=== PATIENT | female | born 1975 | race African-American/Black ===

== ENCOUNTER 2020-08-28 18:15 | Emergency (ER) | payer OTHER ==
[2020-08-28 18:47] VITALS: TEMP 98.5; BMI 54.9
[2020-08-28] MEDS ORDERED: ACETAMINOPHEN 1000 MG/100 ML VIAL (NON FORMULARY) IVPB ONE (18:57)
[2020-08-28] MEDS ORDERED: ACETAMINOPHEN INJECTION 100 ML IVPB ONE (19:10)
[2020-08-28 19:30] LABS: PH,URINE 6.5 (5.0-8.0); URINE APPEARANCE CLEAR; URINE BILIRUBIN NEGATIVE (NEGATIVE); URINE COLOR YELLOW; URINE GLUCOSE (UA) NEGATIVE (NEGATIVE); URINE KETONE NEGATIVE (NEGATIVE); URINE LEUK ESTERASE NEGATIVE (NEGATIVE); URINE NITRITE NEGATIVE (NEGATIVE); URINE PROTEIN NEGATIVE (NEGATIVE); URINE UROBILINOGEN 0.2 mg/dL (0.2-1.0)
[2020-08-28 19:41] LABS: BASO % 0.2 % (0-2.0); EOS % 0.3 % (0-4.5); HEMATOCRIT 39.7 % (32.4-45.2); HEMOGLOBIN 12.9 GM/dL (10.7-15.3); LYMPH % 16.6 % (8-40); MCH 27.2 pg (25.7-33.7); MCHC 32.6 g/dl (32.0-36.0); MEAN CELL VOLUME 83.6 fl (80-96); MONO % 5.9 % (3.8-10.2); PLATELET COUNT 440 K/MM3 (134-434); RBC 4.75 M/mm3 (3.60-5.2); RDW 15.4 % (11.6-15.6)
[2020-08-28 20:00] LABS: CHLORIDE 101 mmol/L (98-107); SODIUM 134 mmol/L (136-145)
[2020-08-28 20:02] LABS: CALCIUM 9.4 mg/dL (8.5-10.1)
[2020-08-28 20:03] LABS: ALBUMIN 3.5 g/dl (3.4-5.0); ANION GAP 7 MMOL/L (8-16); BLOOD UREA NITROGEN 20.8 mg/dL (7-18); CO2 27 mmol/L (21-32); GLUCOSE,RANDOM 121 mg/dL (74-106); LIPASE 53 U/L (73-393); MAGNESIUM 2.2 mg/dL (1.8-2.4)
[2020-08-28 20:06] LABS: CREATININE 0.8 mg/dL (0.55-1.3); SGOT/AST 13 U/L (15-37); SGPT/ALT 22 U/L (13-61)
[2020-08-28 20:07] LABS: BILIRUBIN,TOTAL 0.4 mg/dL (0.2-1); TOT PROT 7.8 g/dl (6.4-8.2)
[2020-08-28 20:08] LABS: ALK PHOS 98 U/L (45-117)
[2020-08-28 22:21] VITALS: BP 112/62; PULSE 87
== END 2020-08-29 00:02 | disposition home or self-care (01) ==
LOC: JER 18:15
PROC: 3E0333Z Introduction of Anti-inflammatory into Peripheral Vein, Percutaneous Approach (ICD-10-PCS; principal; 2020-08-28)
DX: R10.9 Unspecified abdominal pain (principal)
CPT/HCPCS: 36415; 74177-TC; 80053; 81003; 82550; 82553; 83605; 83690; 83735; 84484; 84703; 85025; 87086; 93005; 93010; 99285-25; J0131; Q9967

== ENCOUNTER 2022-02-05 10:09 | Emergency (ER) | payer OTHER ==
[2022-02-05 10:31] VITALS: BP 138/82; PULSE 80; RESP 18; TEMP 98.4; BMI 60.0
[2022-02-05 12:59] LABS: THROAT:GRP A STREP NOT DETECTED (NOTDETECTED)
== END 2022-02-05 12:01 | disposition home or self-care (01) ==
LOC: JER 10:09
DX: R05.9 Cough, unspecified (principal); R07.0 Pain in throat; B34.9 Viral infection, unspecified
CPT/HCPCS: 0241U-QW; 87651; 99283-25

== ENCOUNTER 2022-08-09 11:03 | Emergency (ER) | payer OTHER ==
[2022-08-09 11:15] VITALS: BP 122/75; PULSE 86; RESP 18; TEMP 97.7; BMI 58.3
== END 2022-08-09 15:18 | disposition home or self-care (01) ==
LOC: JER 11:03 → JERFT 11:03
DX: M25.562 Pain in left knee (principal); R22.42 Localized swelling, mass and lump, left lower limb; R06.02 Shortness of breath; M25.462 Effusion, left knee
CPT/HCPCS: 71046-TC-FY; 73562-TC-LT-FY; 93971-TC; 99284-25

== ENCOUNTER 2022-08-19 14:32 | Emergency (ER) | payer OTHER ==
[2022-08-19 14:47] VITALS: BP 143/78; PULSE 88; RESP 18; TEMP 98; BMI 58.3
[2022-08-19] MEDS ORDERED: DIPHTH,PERTUSS(ACELL),TET 0.5 ML DISP.SYRIN IM ONE ×2 (16:09→16:12)
[2022-08-19] MEDS ORDERED: BACITRACIN ZINC 15 GM TUBE TOPICAL OINTMENT TP ONE (16:10)
[2022-08-19] MEDS ORDERED: BACITRACIN ZINC 15 GM TUBE TOPICAL OINTMENT ONE (16:12)
== END 2022-08-19 16:25 | disposition home or self-care (01) ==
LOC: JERFT 14:32
PROC: 0HQGXZZ Repair Left Hand Skin, External Approach (ICD-10-PCS; principal; 2022-08-19)
PROC: 3E0234Z Introduction of Serum, Toxoid and Vaccine into Muscle, Percutaneous Approach (ICD-10-PCS; 2022-08-19)
DX: S61.512A Laceration without foreign body of left wrist, initial encounter (principal); W25.XXXA Contact with sharp glass, initial encounter; Y92.039 Unspecified place in apartment as the place of occurrence of the external cause
CPT/HCPCS: 12002-25; 90471; 90715; 99282-25

== ENCOUNTER 2022-09-04 16:55 | Emergency (ER) | payer OTHER ==
[2022-09-04 17:07] VITALS: BP 132/87; PULSE 86; RESP 18; TEMP 98.1; BMI 57.4
== END 2022-09-04 17:20 | disposition left against medical advice (07) ==
LOC: JERFT 16:55
DX: Z48.02 Encounter for removal of sutures (principal)
CPT/HCPCS: 99281-25

== ENCOUNTER 2023-12-12 12:19 | Emergency (ER) | payer OTHER ==
[2023-12-12 12:29] VITALS: BP 137/85; PULSE 73; RESP 18; TEMP 97.5; BMI 49.4
[2023-12-12] MEDS: SODIUM CHLORIDE 1,000 ML IV STA (14:14)
[2023-12-12 14:18] LABS: BASO % 0.4 % (0-2.0); EOS % 1.2 % (0-4.5); HEMATOCRIT 36.4 % (32.4-45.2); HEMOGLOBIN 11.5 GM/dL (10.7-15.3); LYMPH % 29.5 % (8-40); MCH 26.5 pg (25.7-33.7); MCHC 31.6 g/dl (32.0-36.0); MEAN PLT VOLUME 7.1 fl (7.5-11.1); MONO % 6.2 % (3.8-10.2); NEUT % 62.7 % (42.8-82.8); PLATELET COUNT 361 10^3/uL (134-434); RBC 4.33 M/mm3 (3.60-5.2); RDW 15.8 % (11.6-15.6); WHITE BLOOD COUNT 11.5 K/mm3 (4.0-10.0)
[2023-12-12 14:19] LABS: PH,URINE 5.5 (5.0-8.0); URINE APPEARANCE CLEAR; URINE BILIRUBIN NEGATIVE (NEGATIVE); URINE COLOR YELLOW; URINE GLUCOSE (UA) NEGATIVE (NEGATIVE); URINE KETONE TRACE (NEGATIVE); URINE LEUK ESTERASE NEGATIVE (NEGATIVE); URINE NITRITE NEGATIVE (NEGATIVE); URINE PROTEIN NEGATIVE (NEGATIVE); URINE UROBILINOGEN 0.2 mg/dL (0.2-1.0)
[2023-12-12 14:46] LABS: BLOOD UREA NITROGEN 7.3 mg/dL (7-18); CALCIUM 9.1 mg/dL (8.5-10.1)
[2023-12-12 14:48] LABS: ALBUMIN 3.1 g/dl (3.4-5.0)
[2023-12-12 14:51] LABS: CREATININE 0.5 mg/dL (0.55-1.3)
[2023-12-12 14:53] LABS: BILIRUBIN,TOTAL 0.5 mg/dL (0.2-1); TOT PROT 7.3 g/dl (6.4-8.2)
== END 2023-12-12 15:26 | disposition home or self-care (01) ==
LOC: JER 12:19
PROC: 3E0337Z Introduction of Electrolytic and Water Balance Substance into Peripheral Vein, Percutaneous Approach (ICD-10-PCS; principal; 2023-12-12)
DX: R53.83 Other fatigue (principal); R42 Dizziness and giddiness
CPT/HCPCS: 36415; 80053; 81003; 83735; 84439; 84443; 85025; 87086; 93005; 93010; 99284-25